=== PATIENT | female | born 1945 | race Caucasian/White ===

== ENCOUNTER 2022-03-06 04:50 | Inpatient (IN) | payer MEDICARE, MEDICAID ==
[~2022-03-06] VITALS: Ht 165.1 cm; Wt 71.7 kg
[2022-03-06] MEDS ORDERED: CEFAZOLIN SOD 2 GM in D5W 50 ML IV ONE (07:00)
[2022-03-06] MEDS ORDERED: LEVO75CA5 PO (07:13)
[2022-03-06] MEDS ORDERED: METO25TA3 PO (07:13)
[2022-03-06] MEDS ORDERED: RIVA20TA PO (07:13)
[2022-03-06] MEDS ORDERED: GABA-529 PO (07:13)
[2022-03-06] MEDS ORDERED: ONDANSETRON HCL 4 MG/2 ML VIAL ONE (07:30)
[2022-03-06] MEDS ORDERED: NS IRRIG SOLN 1000 ML IR ONE (07:30)
[2022-03-06] MEDS ORDERED: MIDAZOLAM HCL 5 MG/ML VIAL (VERSED) IV ONE (07:30)
[2022-03-06] MEDS ORDERED: BUPIVACAINE /PF 0.25% 30 ML VIAL INJ ONE (07:30)
[2022-03-06] MEDS ORDERED: NS 1000 ML IV.SOLN IV ONE (07:30)
[2022-03-06] MEDS ORDERED: WATER FOR IRRIGATION,STERILE 1,000 ML IRRIG.SOLN IR ONE (07:30)
[2022-03-06] MEDS ORDERED: ACETAMINOPHEN I.V. 1000 MG /100 ML IVPB PREMIX IV ONE (07:30)
[2022-03-06] MEDS ORDERED: KETOROLAC TROMETHAMINE 30 MG VIAL ONE (07:30)
[2022-03-06] MEDS ORDERED: ceFAZolin SODIUM 1 GM VIAL ONE (07:30)
[2022-03-06] MEDS ORDERED: SEVOFLURANE 15 MIN GAS INH ONE (07:30)
[2022-03-06] MEDS ORDERED: MORPHINE SULFATE 10MG/10ML PF AMP ONE (07:30)
[2022-03-06] MEDS ORDERED: LIDOCAINE 1% 10 MG/ML, 20 ML MDV ONE (07:30)
[2022-03-06] MEDS ORDERED: PROPOFOL 200MG/ 20ML VIAL (DIPRIVAN) IV ONE (07:30)
[2022-03-06] MEDS ORDERED: DEXAMETHASONE SOD PHOSPHATE 4 MG/ML VIAL ONE (07:30)
[2022-03-06] MEDS ORDERED: ACETAMINOPHEN I.V. 1000 MG 100 ML IV ONE (08:45)
[2022-03-06] MEDS ORDERED: BUPIVACAINE LIPOSOME/PF 266 MG/20 ML VIAL INFIL ONE (08:45)
[2022-03-06] MEDS ORDERED: HYDROmorphone 1 MG/ML INJ. CARTRIDGE IVP PRN ×5 (09:00→11:00)
[2022-03-06] MEDS ORDERED: MEPERIDINE HCL/PF 25 MG/ML DISP.SYRIN IVP PRN (09:00)
[2022-03-06] MEDS ORDERED: METOCLOPRAMIDE HCL 10 MG/2 ML VIAL IVP PRN ×2 (09:00→10:30)
[2022-03-06] MEDS ORDERED: DIPHENHYDRAMINE INJ 50 MG/ML VIAL IVP PRN (09:45)
[2022-03-06] MEDS ORDERED: NALOXONE HCL 0.4 MG/ML AMP (NARCAN) IVP PRN (09:45)
[2022-03-06] MEDS ORDERED: ONDANSETRON HCL 4 MG/2 ML VIAL IVP PRN ×2 (09:45→11:45)
[2022-03-06] MEDS ORDERED: BISACODYL 10 MG/SUPPOSITORY RC PRN (10:30)
[2022-03-06] MEDS ORDERED: LACTULOSE 20 GM/30 ML UDC PO PRN (10:30)
[2022-03-06] MEDS ORDERED: DIPHENHYDRAMINE HCL 25 MG CAPSULE PO PRN (10:30)
[2022-03-06] MEDS ORDERED: LORATADINE 10 MG TABLET PO PRN (11:00)
[2022-03-06] MEDS ORDERED: oxyCODONE HCL 5 MG TABLET PO PRN ×2 (11:00)
[2022-03-06] MEDS ORDERED: traMADol HCL HCL 50 MG TABLET (ULTRAM) PO PRN (11:00)
[2022-03-06 12:25] VITALS: BP_SYST 126
[2022-03-06] MEDS: ACETAMINOPHEN 500 MG TABLET PO SCH ×2 (14:16→21:38)
[2022-03-06] MEDS: KETOROLAC TROMETHAMINE 10 MG TABLET (TORADOL) PO SCH ×2 (14:17→21:38)
[2022-03-06] MEDS: ceFAZolin SODIUM 2 GM in D5W 50 ML IV SCH ×2 (14:22→20:46)
[2022-03-06] MEDS: LR 1,000 ML IV SCH ×2 (14:28→19:00)
[2022-03-06 16:55] VITALS: BP_SYST 113
[2022-03-06 20:00] VITALS: BP_SYST 133
[2022-03-06] MEDS: GABAPENTIN 100 MG CAPSULE PO SCH (20:46)
[2022-03-06] MEDS: SENNOSIDES/DOCUSATE SODIUM 1 TAB TABLET(SENOKOT-S) PO SCH (20:46)
[2022-03-07] VITALS: BP_SYST 93
[2022-03-07] MEDS: LR 1,000 ML IV SCH ×2 (00:25→18:16)
[2022-03-07] MEDS: ceFAZolin SODIUM 2 GM in D5W 50 ML IV SCH (04:59)
[2022-03-07] MEDS: KETOROLAC TROMETHAMINE 10 MG TABLET (TORADOL) PO SCH (06:12)
[2022-03-07] MEDS: ACETAMINOPHEN 500 MG TABLET PO SCH ×3 (06:12→21:06)
[2022-03-07 06:55] LABS: BASOPHILS # (AUTO) 0.1 K/uL (0.0-0.2); BASOPHILS % (AUTO) 0.8 % (0.0-2.0); EOSINOPHILS # (AUTO) 0.1 K/uL (0.0-0.4); EOSINOPHILS % (AUTO) 0.8 % (0.0-4.0); HEMATOCRIT 31.3 % (36-48); HEMOGLOBIN 10.7 g/dL (12.0-16.0); LYMPHOCYTES # (AUTO) 1.6 K/uL (1.0-5.5); LYMPHOCYTES % (AUTO) 24.5 % (20.5-51.5); MEAN CORPUSCULAR HEMOGLOBIN 32 pg (27-31); MEAN CORPUSCULAR HGB CONC 34 % (32-36); MEAN CORPUSCULAR VOLUME 94 fL (79.0-98.0); MONOCYTES # (AUTO) 0.5 K/uL (0.0-1.0); MONOCYTES % (AUTO) 7.7 % (1.7-9.3); NEUTROPHILS # (AUTO) 4.4 K/uL (1.8-7.7); NEUTROPHILS % (AUTO) 66.2 % (40.0-70.0); PLATELET COUNT (AUTO) 153 K/uL (130-430); RED BLOOD CELL COUNT(AUTO) 3.34 MIL/uL (4.2-6.2); RED CELL DISTRIBUTION WIDTH 12.6 % (9.0-15.0); WHITE BLOOD COUNT (AUTO) 6.7 K/uL (4.8-10.8)
[2022-03-07 07:21] LABS: ALANINE AMINOTRANSFERASE 14 U/L (12-78); ALBUMIN 2.4 g/dL (3.4-4.8); ANION GAP 8 (5-15); ASPARTATE AMINOTRANSFERASE 17 U/L (10-37); CALCIUM 8.4 mg/dL (8.4-11.0); CHLORIDE 104 mmol/L (98-107); CREATININE 0.67 mg/dL (0.55-1.30); GLUCOSE 129 mg/dL (70-99); TOTAL BILIRUBIN 0.3 mg/dL (0.0-1.0); UREA NITROGEN, BLOOD 16 mg/dL (8-21)
[2022-03-07 08:28] VITALS: BP_SYST 113
[2022-03-07] MEDS: LEVOTHYROXINE SODIUM 0.075 MG TABLET PO SCH (08:36)
[2022-03-07] MEDS: SENNOSIDES/DOCUSATE SODIUM 1 TAB TABLET(SENOKOT-S) PO SCH ×2 (08:36→21:06)
[2022-03-07] MEDS: RIVAROXABAN 10 MG TABLET PO SCH (08:39)
[2022-03-07] MEDS: METOPROLOL SUCCINATE 25 MG TAB.SR.24H (TOPROL XL) PO SCH (08:40)
[2022-03-07] MEDS ORDERED: RIVAROXABAN 10 MG TABLET PO SCH (09:00)
[2022-03-07 11:27] VITALS: BP_SYST 95
[2022-03-07 16:57] VITALS: BP_SYST 130
[2022-03-07 20:00] VITALS: BP_SYST 117
[2022-03-07] MEDS: GABAPENTIN 100 MG CAPSULE PO SCH (21:06)
[2022-03-08 00:26] VITALS: BP_SYST 124
[2022-03-08] MEDS: LR 1,000 ML IV SCH ×3 (01:00→21:03)
[2022-03-08] MEDS: ACETAMINOPHEN 500 MG TABLET PO SCH ×3 (06:48→22:27)
[2022-03-08 08:00] VITALS: BP_SYST 121
[2022-03-08] MEDS: LEVOTHYROXINE SODIUM 0.075 MG TABLET PO SCH (09:27)
[2022-03-08] MEDS: RIVAROXABAN 10 MG TABLET PO SCH (09:29)
[2022-03-08] MEDS: SENNOSIDES/DOCUSATE SODIUM 1 TAB TABLET(SENOKOT-S) PO SCH ×2 (09:29→21:02)
[2022-03-08] MEDS: METOPROLOL SUCCINATE 25 MG TAB.SR.24H (TOPROL XL) PO SCH (09:29)
[2022-03-08 13:44] VITALS: BP_SYST 132
[2022-03-08 16:55] LABS: BILIRUBIN,URINE NEGATIVE (NEGATIVE); BLOOD, URINE NEGATIVE (NEGATIVE); CLARITY/URINE CLEAR (CLEAR); GLUCOSE,URINE NEGATIVE (NEGATIVE); KETONES,URINE NEGATIVE (NEGATIVE); LEUKOCYTE ESTERASE ,URINE NEGATIVE (NEGATIVE); NITRITE, URINE NEGATIVE (NEGATIVE); PROTEIN URINE NEGATIVE (NEGATIVE); UROBILINOGEN,URINE 0.2 (0.2-1.0)
[2022-03-08 17:08] LABS: COLOR,URINE YELLOW (YELLOW)
[2022-03-08 17:20] VITALS: BP_SYST 140
[2022-03-08 21:00] VITALS: BP_SYST 125
[2022-03-08] MEDS: GABAPENTIN 100 MG CAPSULE PO SCH (21:01)
[2022-03-08] MEDS: cephALEXin 500 MG CAPSULE PO SCH (21:02)
[2022-03-09] VITALS (7 sets, daily range): BP systolic 100–198
[2022-03-09] MEDS: ACETAMINOPHEN 500 MG TABLET PO SCH ×3 (06:22→22:10)
[2022-03-09] MEDS: LR 1,000 ML IV SCH ×2 (07:00→17:01)
[2022-03-09] MEDS ORDERED: OXYIR5 PO (07:50)
[2022-03-09] MEDS: LEVOTHYROXINE SODIUM 0.075 MG TABLET PO SCH (08:56)
[2022-03-09] MEDS: cephALEXin 500 MG CAPSULE PO SCH ×3 (08:56→20:06)
[2022-03-09] MEDS: RIVAROXABAN 10 MG TABLET PO SCH (08:57)
[2022-03-09] MEDS: METOPROLOL SUCCINATE 25 MG TAB.SR.24H (TOPROL XL) PO SCH (08:58)
[2022-03-09] MEDS: SENNOSIDES/DOCUSATE SODIUM 1 TAB TABLET(SENOKOT-S) PO SCH ×2 (08:58→20:06)
[2022-03-09] MEDS: GABAPENTIN 100 MG CAPSULE PO SCH (20:06)
== END 2022-03-09 22:35 | DRG 470 ==
LOC: SMU 04:50 → SDS 04:50 → SMU 10:53 → SDS 12:14 → STU 12:16 → SMU 03-08 15:54
PROVIDERS: ADMIT Student in an Organized Health Care Education/Training Program; ATTEND Student in an Organized Health Care Education/Training Program
PROC: 0SR90JA Replacement of Right Hip Joint with Synthetic Substitute, Uncemented, Open Approach (ICD-10-PCS; principal; 2022-03-06 07:37)
DX: M16.11 Unilateral primary osteoarthritis, right hip (principal); Z20.822 Contact with and (suspected) exposure to COVID-19
CPT/HCPCS: 36415; 72170-TC; 76001; 80053; 81003; 85025; 86886; 86900; 86901; 87081; 88304; 88311; 96379; 97110-GP; 97112-GP; 97116-GP; 97530-GP; C1713; C1776; C9290; G0378; J0131; J0690; J1100; J1170; J1885; J2001; J2250; J2274; J2405; J2704; J3490; J7030; J7060; U0003

== ENCOUNTER 2022-08-07 05:30 | Inpatient (IN) | payer MEDICARE, MEDICAID ==
[~2022-08-07] VITALS: Ht 165.1 cm; Wt 76.7 kg
[~2022-08-07 05:30] MED LIST: GABA-529 PO; LEVO75CA5 PO; METO25TA3 PO; OXYIR5 PO; RIVA20TA PO
[2022-08-07] MEDS ORDERED: SCOPOLAMINE HYDROBROMIDE 1 MG PATCH .72 H (TRANSDERM-SCOP) TD ONE ×2 (05:46→06:00)
[2022-08-07] MEDS ORDERED: GABAPENTIN 300 MG CAPSULE ONE (05:46)
[2022-08-07] MEDS ORDERED: ACETAMINOPHEN 500 MG TABLET ONE (05:46)
[2022-08-07] MEDS ORDERED: CEFAZOLIN SOD 2 GM in D5W 50 ML IV ONE (06:00)
[2022-08-07] MEDS ORDERED: GABAPENTIN 300 MG CAPSULE PO ONE (06:00)
[2022-08-07] MEDS ORDERED: ACETAMINOPHEN 500 MG TABLET PO ONE (06:00)
[2022-08-07] MEDS ORDERED: oxyCODONE HCL 10 MG TAB.ER.12H PO ONE (06:00)
[2022-08-07] MEDS ORDERED: TRANEXAMIC ACID 1,000 MG/10 ML VIAL IV ONE (07:00)
[2022-08-07] MEDS ORDERED: TRANEXAMIC ACID 1,000 MG/10 ML VIAL ONE (07:31)
[2022-08-07] MEDS ORDERED: PROPOFOL 200MG/ 20ML VIAL (DIPRIVAN) IV ONE (07:31)
[2022-08-07] MEDS ORDERED: VANCOMYCIN HCL 1000 MG/VIAL IV ONE (07:31)
[2022-08-07] MEDS ORDERED: SUGAMMADEX SODIUM 200 MG/2 ML VIAL IV ONE (07:31)
[2022-08-07] MEDS ORDERED: SUCCINYLCHOLINE CHLORIDE 20 MG/ML(QUELICIN) ONE (07:31)
[2022-08-07] MEDS ORDERED: ROCURONIUM BROMIDE 10 MG/ML (ZEMURON) ONE (07:31)
[2022-08-07] MEDS ORDERED: NS IRRIG SOLN 1000 ML IR ONE (07:31)
[2022-08-07] MEDS ORDERED: LR 1,000 ML IV.SOLN IV ONE (07:31)
[2022-08-07] MEDS ORDERED: ONDANSETRON HCL 4 MG/2 ML VIAL ONE (07:31)
[2022-08-07] MEDS ORDERED: DEXAMETHASONE SOD PHOSPHATE 4 MG/ML VIAL ONE (07:31)
[2022-08-07] MEDS ORDERED: METOCLOPRAMIDE HCL 10 MG/2 ML VIAL ONE (07:31)
[2022-08-07] MEDS ORDERED: ACETAMINOPHEN I.V. 1000 MG 100 ML IV ONE (07:56)
[2022-08-07] MEDS ORDERED: GABA-529 PO (09:20)
[2022-08-07] MEDS ORDERED: RIVA20TA PO (09:20)
[2022-08-07] MEDS ORDERED: LORA10TA7 PO (09:20)
[2022-08-07] MEDS ORDERED: LEVO75TA7 PO (09:20)
[2022-08-07] MEDS ORDERED: BACL10TA PO (09:20)
[2022-08-07] MEDS ORDERED: ACET325T53 PO (09:20)
[2022-08-07] MEDS ORDERED: TRAM50TA2 PO (09:20)
[2022-08-07] MEDS ORDERED: BUPIVACAINE LIPOSOME/PF 266 MG/20 ML VIAL INFIL ONE (10:01)
[2022-08-07] MEDS ORDERED: ONDANSETRON HCL 4 MG/2 ML VIAL IVP PRN ×2 (10:15→11:45)
[2022-08-07] MEDS ORDERED: HYDROmorphone 2 MG/ML VIAL IVP PRN (10:15)
[2022-08-07] MEDS ORDERED: HYDROmorphone 1 MG/ML INJ. CARTRIDGE IVP PRN ×5 (10:15→11:00)
[2022-08-07] MEDS ORDERED: NALOXONE HCL 0.4 MG/ML AMP (NARCAN) IVP PRN ×5 (10:15→10:45)
[2022-08-07] MEDS ORDERED: DIPHENHYDRAMINE HCL 25 MG CAPSULE PO PRN (10:45)
[2022-08-07] MEDS ORDERED: LACTULOSE 20 GM/30 ML UDC PO PRN (10:45)
[2022-08-07] MEDS ORDERED: BISACODYL 10 MG/SUPPOSITORY RC PRN (10:45)
[2022-08-07] MEDS ORDERED: METOCLOPRAMIDE HCL 10 MG/2 ML VIAL IVP PRN (10:45)
[2022-08-07] MEDS ORDERED: traMADol HCL HCL 50 MG TABLET (ULTRAM) PO PRN (11:00)
[2022-08-07] MEDS ORDERED: LORATADINE 10 MG TABLET PO PRN (11:00)
[2022-08-07] MEDS ORDERED: oxyCODONE HCL 5 MG TABLET PO PRN ×2 (11:00)
[2022-08-07 12:57] VITALS: BP_SYST 131; PULSE 62; RESP 18; TEMP 97
[2022-08-07 13:07] VITALS: BP_SYST 131; PULSE 62; RESP 18; TEMP 97; O2SAT 95
[2022-08-07] MEDS: ceFAZolin SODIUM 2 GM in D5W 50 ML IV SCH ×2 (13:36→22:03)
[2022-08-07] MEDS: ACETAMINOPHEN 500 MG TABLET PO SCH ×2 (15:25→22:02)
[2022-08-07] MEDS: KETOROLAC TROMETHAMINE 10 MG TABLET (TORADOL) PO SCH ×2 (15:26→22:02)
[2022-08-07] MEDS ORDERED: LEVOTHYROXINE SODIUM 0.075 MG TABLET PO ONE (17:00)
[2022-08-07 21:00] VITALS: BP_SYST 135; PULSE 79; RESP 20; TEMP 97.8; O2SAT 95
[2022-08-07] MEDS ORDERED: GABAPENTIN 100 MG CAPSULE PO SCH (21:00)
[2022-08-07] MEDS: SENNOSIDES/DOCUSATE SODIUM 1 TAB TABLET(SENOKOT-S) PO SCH (22:02)
[2022-08-08 01:46] VITALS: BP_SYST 107; PULSE 74; RESP 18; TEMP 98.7; O2SAT 93
[2022-08-08 05:27] LABS: BASOPHILS % (AUTO) 0.6 % (0.0-2.0); EOSINOPHILS % (AUTO) 0.6 % (0.0-4.0); HEMATOCRIT 29.1 % (36-48); HEMOGLOBIN 9.8 g/dL (12.0-16.0); LYMPHOCYTES # (AUTO) 1.6 K/uL (1.0-5.5); LYMPHOCYTES % (AUTO) 24.1 % (20.5-51.5); MEAN CORPUSCULAR HEMOGLOBIN 32 pg (27-31); MEAN CORPUSCULAR HGB CONC 34 % (32-36); MEAN CORPUSCULAR VOLUME 94 fL (79.0-98.0); MONOCYTES # (AUTO) 0.6 K/uL (0.0-1.0); MONOCYTES % (AUTO) 8.6 % (1.7-9.3); NEUTROPHILS # (AUTO) 4.5 K/uL (1.8-7.7); NEUTROPHILS % (AUTO) 66.1 % (40.0-70.0); PLATELET COUNT (AUTO) 137 K/uL (130-430); RED CELL DISTRIBUTION WIDTH 14.3 % (9.0-15.0); WHITE BLOOD COUNT (AUTO) 6.8 K/uL (4.8-10.8)
[2022-08-08 05:53] LABS: ALANINE AMINOTRANSFERASE 24 U/L (12-78); ALBUMIN 2.7 g/dL (3.4-4.8); ANION GAP 4 (5-15); ASPARTATE AMINOTRANSFERASE 23 U/L (10-37); CALCIUM 8.7 mg/dL (8.4-11.0); CHLORIDE 107 mmol/L (98-107); GLUCOSE 96 mg/dL (70-99); TOTAL BILIRUBIN 0.5 mg/dL (0.0-1.0); UREA NITROGEN, BLOOD 18 mg/dL (8-21)
[2022-08-08] MEDS: KETOROLAC TROMETHAMINE 10 MG TABLET (TORADOL) PO SCH (06:02)
[2022-08-08] MEDS: ACETAMINOPHEN 500 MG TABLET PO SCH (06:05)
[2022-08-08] MEDS ORDERED: LEVOTHYROXINE SODIUM 0.075 MG TABLET PO SCH ×2 (07:00→09:00)
[2022-08-08] MEDS ORDERED: VANCOMYCIN HCL 1 GM/NS PREMIX 250 ML IV ONE (08:00)
[2022-08-08 08:02] VITALS: BP_SYST 109; PULSE 73; RESP 18; TEMP 97; O2SAT 95
[2022-08-08] MEDS ORDERED: METOPROLOL SUCCINATE 25 MG TAB.SR.24H (TOPROL XL) PO SCH (09:00)
[2022-08-08] MEDS ORDERED: RIVAROXABAN 10 MG TABLET PO SCH (09:00)
[2022-08-08] MEDS ORDERED: DECADRON 4 MG TABLET PO SCH (09:00)
[2022-08-08] MEDS: SENNOSIDES/DOCUSATE SODIUM 1 TAB TABLET(SENOKOT-S) PO SCH (09:02)
[2022-08-08 10:40] VITALS: BP_SYST 109; PULSE 73; RESP 18; TEMP 97.8; O2SAT 96
[2022-08-08 13:02] VITALS: BP_SYST 109; PULSE 82; RESP 16; TEMP 98.3; O2SAT 97
== END 2022-08-08 13:07 | disposition home health service (06) | DRG 470 ==
LOC: SMU 05:30
PROVIDERS: ADMIT Student in an Organized Health Care Education/Training Program; ATTEND Student in an Organized Health Care Education/Training Program
PROC: 0SRB0JA Replacement of Left Hip Joint with Synthetic Substitute, Uncemented, Open Approach (ICD-10-PCS; principal; 2022-08-07 07:31)
DX: M16.12 Unilateral primary osteoarthritis, left hip (principal)
CPT/HCPCS: 36415; 72170-TC; 76001; 80053; 85025; 87081; 88305; 88311; 96379; 97110-GP; 97116-GP; 97163-GP; 97530-GP; A4649; C1713; C1776; C9290; J0131; J0330; J0690; J1100; J2405; J2704; J2765; J3370; J3490; J7040; J7060; J7120; J8540